=== PATIENT | male | born 1995 | race Caucasian/White ===

== ENCOUNTER 2017-11-28 02:28 | Emergency (ER) | payer BC ==
[2017-11-28 02:33] VITALS: BP 114/71; PULSE 99; RESP 18; TEMP 98.4; O2SAT 97
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
== END 2017-11-28 03:47 | disposition home or self-care (01) ==
PROC: 0HQ1XZZ Repair Face Skin, External Approach (ICD-10-PCS; principal; 2017-11-28)
DX: S01.112A Laceration without foreign body of left eyelid and periocular area, initial encounter (principal); Y04.0XXA Assault by unarmed brawl or fight, initial encounter